=== PATIENT | male | born 1960 | race Caucasian/White ===

== ENCOUNTER 2024-03-11 | Outpatient (REF) | payer MEDICAID, SELFPAY | END 2024-03-11 00:01 | disposition home or self-care (01) | LOC: HO.HHCLNP | PROVIDERS: Visit Provider Emergency Medicine | DX: L03.115 Cellulitis of right lower limb (principal) | CPT/HCPCS: 87070; 87077; 87186; 87205 ==

== ENCOUNTER 2024-03-19 12:32 | Outpatient (REF) | payer MEDICAID, SELFPAY ==
[2024-03-19 13:44] LABS: Hematocrit 41.6 % (42.0-52.0); Hemoglobin 13.8 g/dl (14.0-18.0); Mean Corpuscular HGB Conc 33.2 g/dl (31.0-36.0); Mean Corpuscular Hemoglobin 28.2 pg (27.0-33.0); Mean Corpuscular Volume 85.1 fL (80.0-98.0); Mean Platelet Volume 10.4 fL (9.4-12.4); Platelet Count 189 X10*3/uL (160-400); Red Blood Count 4.89 X10*6/uL (4.60-5.80); Red Cell Distribution Width 13.3 % (11.0-16.0); White Blood Count 4.1 X10*3/uL (4.8-10.8)
[2024-03-19 14:21] LABS: Prostate Specific Antigen Scr < 0.10 ng/mL (<0.05-4.0)
[2024-03-19 14:30] LABS: Alanine Aminotransferase 23 U/L (0-40); Albumin Level 4.1 g/dL (3.5-5.0); Alkaline Phosphatase 83 U/L (39-117); Anion Gap 14 (12-20); Aspartate Amino Transferase 23 U/L (5-37); Bilirubin Direct 0.1 mg/dL (0.0-0.5); Bilirubin Total 0.4 mg/dL (0.0-1.0); Blood Urea Nitrogen 19 mg/dL (9-16); Calcium 9.2 mg/dL (8.4-10.2); Carbon Dioxide 26 mmol/L (22-29); Chloride 103 mmol/L (96-108); Cholesterol 177 mg/dL (<200); Estimated Glomerular Filt Rate > 60; Free T4 (Free Thyroxine) 0.83 ng/dL (0.71-1.85); Glucose Random 96 mg/dL (60-115); HDL Cholesterol 48 mg/dL (>40); LDL Cholesterol Calculated 108 mg/dL (<100); Potassium 4.2 mmol/L (3.3-5.1); Sodium 139 mmol/L (135-145); Thyroid Stimulating Hormone 2.02 uIU/mL (0.32-4.0); Total Protein 7.3 g/dL (6.5-8.0); Triglycerides 109 mg/dL (<150); Vitamin D 25-OH Total 26.7 ng/mL (>30)
[2024-03-19 17:23] LABS: Creatinine Urine 145.03 mg/dL; Microalbum/Creatinine Ratio Ur 4.1 ug/mg cr (<30)
[2024-03-19 18:01] LABS: CT PCR NOT DETECTED (Not Detect.); NG PCR NOT DETECTED (Not Detect.)
[2024-03-20 05:41] LABS: Estimated Average Glucose 114 mg/dL; HBS Num1 134.56 mIU/mL (0-7.99); HBsAGNum1 0.28 S/CO (0.00-0.99); HIV AB/AG Nonreactive (Nonreactive); HIV Num 1 0.05 S/CO (0.00-0.99); Hemoglobin A1C 130.7381 umol/L; Hemoglobin A1c % 5.6 % (<6.0); Hepatitis A Antibody IgG REACTIVE (Nonreactive); Hepatitis B Core Antibody Nonreactive (Nonreactive); Hepatitis B Surface Antigen Negative (Negative); Total Hemoglobin (HGBA1C) 3499.8549 umol/L; ~HepC Num1 0.13 S/CO (0.00-0.79); ~Hepatitis A Antibody IgG 12.41 S/CO (0.00-0.99); ~Hepatitis B Surface Antibody REACTIVE (Nonreactive); ~Hepatitis C Antibody Nonreactive (Nonreactive)
[2024-03-21 09:44] LABS: RPR Rapid Plasma Reagin NON-REACTIVE (NON-REACTIVE)
== END 2024-03-19 12:33 | disposition home or self-care (01) ==
LOC: HO.HHCL 12:32
PROVIDERS: Visit Provider Family Medicine
DX: Z00.00 Encounter for general adult medical examination without abnormal findings (principal); I10 Essential (primary) hypertension
CPT/HCPCS: 36415; 80048; 80061; 80076; 82043; 82306; 82570; 83036; 84153; 84439; 84443; 85027; 86592; 86704; 86706; 86708; 86803; 87340; 87389; 87491; 87591

== ENCOUNTER 2024-06-26 10:36 | Outpatient (AMB) | payer MEDICAID, SELFPAY ==
--- NOTE | 2024-06-26 10:40 | A.OFFVIS_ITS ---
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 Has been going on for about 2 years. Patient has neuropathy. Left leg is worse. Swelling on both. 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 Complaints include pain over varicosities, swelling of lower extremities, cramping, fatigue, and heaviness of the lower extremities. It has been affecting there daily activities including walking. 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 It is noted more so in left leg. Patient denies any previous venous surgery or injections. Patient denies any history of DVT/ PE. Patient denies any history of phlebitis. Trial of compression includes - [id number] They now present for vascular evaluation regarding their varicose veins. Review of Systems Const Reports as per HPI ENT Reports no additional complaints Card Denies chest pain, Denies chest pain at rest and Denies chest pain with activity Resp Denies chest congestion and Denies cough GI Reports no additional complaints Musc Details: pain over varicosities, aching of lower extremities, swelling, cramping, heaviness and tiredness, itching Denies abnormal gait Skin/Breast Reports pruritus and Denies wounds Neuro Reports no additional complaints and Denies abnormal gait Psych Denies no additional complaints Physical Exam Const General: cooperative, healthy appearing and comfortable Orientation/consciousness: oriented to person, oriented to place and oriented to time Neck Carotids: no bruits Chest Chest palpation & inspection: normal inspection of the chest and normal palpation of entire chest wall Resp Effort & Inspection: normal respiratory effort and able to speak in complete sentences Cardio Rate: regular rate Heart sounds: S1 normal heart sound present and S2 normal heart sound present Peripheral pulses: Peripheral pulses 2+ throughout GI Inspection: Yes normal to inspection Skin Other: +2 edema CEAP Classification C4 - skin color changes Ep - Etiology Primary As - superficial veins P - reflux General skin exam: dry skin Neuro General: oriented to person, oriented to place and oriented to time Extrem Right lower extremity: full ROM, normal capillary refill and edema Left lower extremity: full ROM, normal capillary refill and edema Psych Mental Status: mental status grossly normal Assessment & Plan Assessment & Plan (1) Varicose veins of left lower extremity with inflammation: Code(s): I83.12 - Varicose veins of left lower extremity with inflammation Category: Medical Plan: In short, the patient has evidence of venous insufficiency. I have discussed the pathophysiology with the patient. In addition I have provided informational material regarding venous disease to the patient. We have discussed conservative measures including compression, elevation, and exercise. I have also provided a handout regarding appropriate use of compression stockings and where to purchase good compression stockings as well. I have taken the liberty of ordering venous insufficiency testing with the patient. They will follow up with me after testing. The patient had an opportunity to ask questions regarding the treatment plan. All questions were answered. Imaging studies, laboratory studies and physical exam results were discussed and reviewed in detail. No major barriers to understanding were identified. The patient expressed understanding and agreement with the above treatment plan. The patient is aware they should contact our office by phone for worsening of the current condition or the appearance of new symptoms. Thank you for allowing me to participate in the vascular care of this patient. If you have any questions or concerns regarding the treatment for the above condition please do not hesitate to contact me. The office telephone contact is [phone]. This note is constructed using voice recognition software. While every effort has been made to ensure accuracy, maintenance engineer oil field errors may have been included. Thank you for allowing me to participate in the care of your patient. Yours sincerely, Leander Kapoor MD, FACS, R.P.V.I. Orders: Orders US venous duplex LE BI 1 Week I83.12 - Varicose veins of left lower extremity with inflammation Coding Level of Care Code New Pt Level 4 (97396) Diagnoses Varicose veins of left lower extremity with inflammation I83.12
== END 2024-06-26 10:54 | disposition home or self-care (01) ==
PROVIDERS: PCP Family Medicine; Visit Provider Surgery Vascular Surgery
DX: I83.12 Varicose veins of left lower extremity with inflammation (principal)
CPT/HCPCS: 99204

== ENCOUNTER → 2024-06-26 10:36 | Outpatient (BNVA) | payer MEDICAID, SELFPAY | PROVIDERS: PCP Family Medicine; Visit Provider Surgery Vascular Surgery | DX: I83.12 Varicose veins of left lower extremity with inflammation (principal) | CPT/HCPCS: 99202 ==

== ENCOUNTER → 2024-07-29 10:37 | Outpatient (BNV) | payer OTHER, SELFPAY | PROVIDERS: Visit Provider Radiology Diagnostic Radiology | DX: I87.2 Venous insufficiency (chronic) (peripheral) (principal) | CPT/HCPCS: 93970 ==

== ENCOUNTER 2024-08-12 11:00 | Outpatient (AMB) | payer MEDICAID, SELFPAY ==
--- NOTE | 2024-08-12 11:02 | A.OFFVIS_ITS ---
Intake Visit Reasons: follow up s/p US 07/29/24 Intake Note: Patient presents for follow up . States he has bilateral swelling , discoloration and cramping. Left leg is worse. Accompanied by: Officers Allergies acetaminophen [From TYLENOL] Allergy (Mild, Verified 08/12/24 11:03) RASH codeine Allergy (Unknown, Verified 08/12/24 11:03) Hives HPI HPI follow up s/p 07/29/24: Details: Complex 63-year-old gentleman who is currently incarcerated presents for follow- up regarding venous insufficiency. He reports he has swelling of bilateral lower extremities. He remains quite active and wears compression. He now presents for follow-up with venous insufficiency testing. Review of Systems Const All systems reviewed & are unremarkable except as noted in HPI and below Reports no additional complaints ENT Reports Normal hearing present Card Denies chest pain, Denies chest pain at rest, Denies chest pain with activity and Denies pedal edema Resp Denies cough GI Denies abdominal pain Musc Denies abnormal gait, Denies muscle cramps and Denies radiating pain into limb Skin/Breast Denies skin ulcer and Denies wounds Neuro Reports Normal hearing present and Denies abnormal gait Psych Reports no additional complaints Physical Exam Const General: cooperative, healthy appearing and comfortable Orientation/consciousness: oriented to person, oriented to place and oriented to time HEENT Head: Yes normal to inspection Neck Neck: Yes normal visual inspection Carotids: no bruits Chest Chest palpation & inspection: normal inspection of the chest Resp Effort & Inspection: normal respiratory effort and able to speak in complete sentences Auscultation: clear to auscultation bilaterally, no crackles, no rales, no rhonchi and no wheezes Cardio Rate: regular rate Rhythm: regular rhythm Heart sounds: S1 normal heart sound present and S2 normal heart sound present Bruits: no carotid bruits Peripheral pulses: Peripheral pulses 2+ throughout GI Inspection: Yes normal to inspection Skin Wounds: no wounds Hair: normal Neuro General: oriented to person, oriented to place and oriented to time Cranial nerves: Yes CN's II-XII intact bilaterally and Yes Normal hearing present Cognition (Neuro): normal cognition Motor exam (neuro): 5/5 motor strength present throughout Extrem Other: venous exam: +2 edema. No significant varicosities noted. General: No clubbing, No cyanosis and Yes edema Psych Appearance: grossly normal Mental Status: mental status grossly normal Speech and movement: Normal speech and movement present Results Reviewed Results Reviewed: Brief summary of venous insufficiency testing is as follows: right great saphenous vein: Focally positive at knee right small saphenous vein: negative right accessory vein: none present left great saphenous vein: Focally positive at knee left small saphenous vein: negative left accessory vein: none present Please note there is no evidence of any venous aneurysms or significant tortuosity Assessment & Plan Assessment & Plan (1) Varicose veins of left lower extremity with inflammation: Code(s): I83.12 - Varicose veins of left lower extremity with inflammation Category: Medical Plan: In short patient is negative for any significant venous insufficiency. At the sites that it is positive vein is of small caliber. We did discuss routine conservative measures including compression elevation and exercise. Once he is discharged from his current situation I am happy to see him back and we are able to discuss more aggressive option such as lymphedema pumps. He will follow up with us as an outpatient on an as-needed basis. Thank you for allowing us to assist in his care. If there are any questions or concerns please do not hesitate to contact us. Coding Level of Care Code Est Pt Level 4 (37464) Diagnoses Varicose veins of left lower extremity with inflammation I83.12
--- OUTSIDE RECORDS SUMMARY | 2024-08-12 12:11 | XMS_ITS | Encounter Summary ---
Author Organization [employer] Address [address] [place] [address] Care Team Providers Care Court Officer Name Role Phone AvelinaRoxane Primary Care Provider [phone] Reason for Visit * Reason Onset Date Comments Recall Letter 07/15/2024 Recall Letter se nt 07/15/24. Encounter Details Date Type Department Care Team ([facility] st Contact Info) Description 07/15/2024 Telephone [facility] MEDICINE [address] [place] [address] Shanelle Li MA Recall Letter (Recall Letter sent 07/15/24.) Social History Tobacco Use Types Packs/Day Years Used Date Smoking Tobacco: Never Smokeless Tobacco: Never Depression Answer Date Recorded Patient Health Questionnaire-9 Score 16 03/19/2024 Patient Health Questionnaire-9 Score 16 03/19/2024 Last PHQ-9: Questionnaire Data Not on file 0 03/19/2024 Housing Stability Answer Date Recorded What is your housing situation today? I have payal pradhan 03/19/[address] you li ve. Do you have problems with any of the following? None of the above 03/19/2024 Food Insecurity Answer Date Recorded Within the past 12 months, y ou worried that your food would run out before you got money to buy more: Sometimes True 2023 Within the past 12 months,th e food you bought just didn't last and you didn't have enough money to get more: Sometimes True 03/19/2024 Transportation Answer Date Recorded In the past 12 months, has l ack of transportation kept you from medical appts, meetings, work or from getting things needed for daily living? No 03/19/2024 Utilities Answer Date Recorded In the past 12 months, has t he electric, gas, oil or water company threatened to shut off services in your home? No 03/19/2024 Depression Answer Date Recorded Patient Health Questionnaire-2 Score 2 03/19/2024 Internet Access Answer Date Recorded Internet Access Q1 Yes 03/19/2024 Internet Access Q2 Not on file 03/19/2024 Sex and Gender Information Value Date Recorded Sex Assigned at Male 04/24/2022 10:35 AM EDT Legal Sex Male 10:35 AM EDT Gender Identity Male 04/24/2022 10:35 AM EDT Sexual Orientation Straight 04/24/2022 10 :35 AM EDT documented as of this encounter Miscellaneous Notes * Telephone Encounter - Shanelle Li MA - 07/15/2024 2:51 PM EST Left message to patient vm to call office schedule follow up appt. Recall Letter mailed 07/15/24. documented in this encounter Plan of Treatment Not on file documented as of this encounter Visit Diagnoses Not on filedocumented in this encounter Additional Health Concerns Assessment Noted Time PHQ-9 Depression Total Score: 16 024 1:28 PM EDT documented as of this encounter Care Teams Court Officer Relationship Specialty Start Date End Date Roxane Quan DO [address] [place] [address] PCP - General Family Medicine 12/13/20 documented as of this encounter
--- OUTSIDE RECORDS SUMMARY | 2024-08-12 12:11 | XMS_ITS | Encounter Summary ---
Author Organization [employer] Address [address] [place] [address] Care Team Providers Care Environmental Remediation Specialist Name Role Phone Roxane Quan DO Primary Care Provider + [phone] Reason for Visit * Reason Onset Date Comments Televisit 04/25/2024 Encounter Details Date Type Department Care Team ([facility] st Contact Info) Description 04/25/2024 Telephone [facility] MEDICINE [address] [place], [place] [phone] Roxane Quan DO [address] [place], [place] [phone] Televisit Social History Tobacco Use Types Packs/Day Years [...] encounter Miscellaneous Notes * Telephone Encounter - Alicia Parr - 04/25/2024 12:32 PM EDT Tc from pt stating he has not received call for today's televisit documented in this encounter Plan of Treatment Not on file documented as of this encounter Visit Diagnoses Not on filedocumented in this encounter Additional Health Concerns Assessment Noted Time PHQ-9 Depression Total Score: 16 024 1:28 PM EDT documented as of this encounter Care Teams Environmental Remediation Specialist Relationship Specialty Start Date End Date Roxane Quan DO [address] [place] [id number] PCP - General Family Medicine 12/13/20 documented as of this encounter
--- OUTSIDE RECORDS SUMMARY | 2024-08-12 12:11 | XMS_ITS | Encounter Summary ---
Author Organization [employer] Address [address] [place] [address] Care Team Providers Care Cmm Technician Name Role Phone Roxane Quan DO Primary Care Provider + [phone] Reason for Visit * Reason Comments Care Coordination Outreach Encounter Details Date Type Department Care Team (Latest Contact Info) Description 07/17/2024 Patient Outreach [facility] [address] [place], [place] [phone] Roxane Quan DO [address] [place] [address] Care Coordination (Outreach) Social History Tobacco Use Types Packs/Day Years [...] AM EDT documented as of this encounter Progress Notes * Lacey Gastelum - 07/17/2024 1:31 PM EST CHW Lacey Gastelum , placed outbound call to patient in regards to offer services. CHW introducing herself from [facility] CM Department with CHW's name, department and direct contact [phone] requesting call back. Will re-attempt to contact within 5 days. and address not confirmed. documented in this encounter Plan of Treatment Not on file documented as of this encounter Visit Diagnoses Not on filedocumented in this encounter Additional Health Concerns Assessment Noted Time PHQ-9 Depression Total Score: 16 024 1:28 PM EDT documented as of this encounter Care Teams Cmm Technician Relationship Specialty Start Date End Date Roxane Quan DO [address] [place] [id number] PCP - General Family Medicine 12/13/20 documented as of this encounter
--- OUTSIDE RECORDS SUMMARY | 2024-08-12 12:11 | XMS_ITS | Encounter Summary ---
Author Organization [facility] [facility] Address [address] [place] [address] Care Team Providers Care Ethylbenzene Cracking Supervisor Name Role Phone Roxane Quan DO Primary Care Provider [phone] Encounter Details Date Type Department Care Team (Latest Contact Info) Description 01/10/2019 Abstract [facility] CONVERSIONS Dental, Provider, DDS Social History Tobacco Use Types Packs/Day Years Used Date Smoking Tobacco: Never Assessed Sex and Gender Information Value Date Recorded Sex Assigned at Male 04/24/2022 10:35 AM EDT Legal Sex Male 10:35 AM EDT Gender Identity Male 04/24/2022 10:35 AM EDT Sexual Orientation Straight 04/24/2022 10 :35 AM EDT documented as of this encounter Plan of Treatment Not on file documented as of this encounter Visit Diagnoses Not on filedocumented in this encounter Care Teams Ethylbenzene Cracking Supervisor Relationship Specialty Start Date End Date Roxane Quan DO [address] [place] [id number] PCP - General Family Medicine 12/13/20 documented as of this encounter
--- OUTSIDE RECORDS SUMMARY | 2024-08-12 12:11 | XMS_ITS | Clinical Summary ---
Author Organization [employer] Address [address] [facility] 7t [place] [address] Care Team Providers Care Net Software Developer Name Role Phone Kiana Quanfer Primary Care Provider Allergies Active Allergy Reactions Criticality Noted Date Comments Acetaminophen Rash,Unknown Low 05/08/2016 Codeine Hives,Unknown 05/08/2016 Medications Sublocade 300 MG/1.5ML injection 300 mg. 03/07/20 24 Active Blood Pressure kit 1 each 2 times daily. 1 kit 03/11/20 24 025 Active buPROPion SR (Wellbutrin SR) 150 MG 12 hr tablet Take 1 tablet (150 mg) by mouth 2 times daily. 60 tablet 3 03/19/20 24 025 Active docusate sodium (Colace) 100 MG capsule Take 1 capsule (100 mg) by mouth 2 times daily. 180 capsule 3 03/19/20 24 025 Active furosemide (Lasix) 40 MG tablet Take 1 tablet (40 mg) by mouth Once per day. 90 tablet 1 03/19/20 24 025 Active tamsulosin (Flomax) 0.4 MG 24 hr capsule Take 1 capsule (0.4 mg) by mouth at bedtime. 90 capsule 1 03/19/20 24 025 Active polycarbophil (FiberCon) 625 MG tablet Take 1 tablet (625 mg) by mouth Once per day. 90 tablet 3 03/19/20 24 025 Active cholecalcifero l (Vitamin D-3) 50 MCG (2000 UT) capsule Take 1 capsule (50 mcg) by mouth Once per day. 90 capsule 3 03/21/20 24 025 Active lisinopril 5 MG tablet Take 1 tablet (5 mg) by mouth Once per day. 30 tablet 11 04/15/20 24 025 Active Semaglutide-We ight Management (Wegovy) 0.5 MG/0.5ML solution auto-injector Inject 0.5 mg under the skin 1 (one) time per week. 2 mL 3 04/25/20 24 Active amphetamine-de xtroamphetamin e (Adderall) 20 MG tablet TAKE 1 TABLET BY MOUTH TWICE A DAY 60 tablet 08/12/19 25 Active gabapentin (Neurontin) 600 MG tablet TAKE 2 TABLETS BY MOUTH TWICE A DAY 120 tablet 08/12/19 25 Active gabapentin (Neurontin) 600 MG tablet Take 2 tablets (1,200 mg) by mouth 2 times daily. 120 tablet 3 03/19/20 24 025 Discontinued(Re order (will not trigger notification to Pharmacy)) amphetamine-de xtroamphetamin e (Adderall) 20 MG tablet Take 1 tablet (20 mg) by mouth 2 times daily. 60 tablet 07/04/19 25 025 Discontinued(Re order (will not trigger notification to Pharmacy)) Active Problems Problem Noted Date Diagnosed Date History of COVID-19 03/19/2024 ADHD 03/19/2024 History of cocaine dependence 03/19/2024 History of alcohol use 03/19/2024 Benign prostatic hyperplasia 03/19/2024 Chronic pain of both knees 03/19/2024 Anxiety 03/11/2024 Chronic constipation 03/11/2024 Major depression, recurrent, chronic 03/11/2024 History of bilateral hip replacements 03/11/2024 Essential hypertension 03/11/2024 Neuropathy 03/11/2024 Opioid dependence 03/11/2024 Osteoarthritis 03/11/2024 BMI 40.0-44.9, adult 03/11/2024 Chronic venous insufficiency 03/11/2024 Cervical spinal stenosis 05/22/2016 Overview (03/11/2024): Last Assessment & Plan: 55yoM with neck pain and LUE radiculopathy secondary to cervical stenosis, POD#2 s/p C3-C7 posterior cervical laminectomy -q4h neuro checks -HV removed today, steri-strips placed over site -Pain control with PO oxycodone, IV dilaudid prn and valium scheduled -Bowel regimen while on narcotics -regular diet; SLIV -venodynes for DVT ppx. Ok to start SQ heparin tonight -Increase gabapentin to 800mg TID -PT/OT consult. Mobilize without restrictions -IS while awake -Dispo planning back to his facility when pain adequately controlled Last Assessment & Plan: Chronic pain managed with gabapentin History of deep venous thrombosis 07/22/2012 Overview (03/11/2024): Last Assessment & Plan: RUE VTE in 03/2012 iso bacteremia with MSSA and GAS s/p endovascular thrombolysis, and several months of coumadin (3-6 months was recommended, exact duration completed is unclear but anticoag visits through 07/2012 in chart). Etiology of VTE was unclear, possibly iso bacteremia/cellulitis, but hypercoag state was also considered at that time. Resolved Problems Problem Noted Date Diagnosed Date Resolved Date History of colonoscopy 03/11/202403/19 Cellulitis of left lower extremity 12/12/2023 03/19/2024 Overview (03/11/2024): Last Assessment & Plan: Left lower extremity cellulitis Likely secondary to chronic venous stasis disease, has had prior cellulitis in the past. Outpatient, patient completed several days of doxycycline and cephalexin was added without significant improvement. Bilateral lower extremity Dopplers negative for DVT on admission. Patient started on ceftriaxone on admission, this was changed to cefazolin based on [facility] antibiotic guidelines for treatment of non purulent cellulitis. Patient does have risk factor for MRSA (incarceration), however only with local infection and definite subjective and objective signs of improvement on current regimen (not covering for MRSA). - change cefazolin to cefadroxil, monitor response overnight - Blood cultures obtained on admission, will follow - Wound care consulted, and recommended compression garment for tj stasis and possible early tj leg ulcer. - continue home Lasix, no evidence of significant volume overload Encounters Date Type Department Care Team Description 08/12/2024 Refill [facility] [address] [place] [address] Roxane Quan DO 07/31/2024 Patient Outreach [facility] [address] [place] [address] Roxane Quan DO Care Coordination (Outreach) 07/22/2024 Patient Outreach [facility] [address] [place] [address] Roxane Quan DO Care Coordination (Outreach) 07/17/2024 Patient Outreach [facility] [address] [place] [address] Roxane Quan DO Care Coordination (Outreach) 07/15/2024 Telephone [facility] [address] [place] [id number] Shanelle Li [place] Recall Letter (Recall Letter sent 07/15/24.) 07/04/2024 Refill [facility] [address] [place] [address] Roxane Quan DO 05/29/2024 Telephone [facility] [address] [place] [address] Roxane Quan DO No Show 05/27/2024 Refill [facility] [address] [place] [address] Roxane Quan DO from Last 3 Months Immunizations Name Administration Dates Next Due Hep A / Hep B 04/15/2010,03/10/2010 Influenza injectable quadrivalent preservative f ree 03/23/2017 Moderna Covid-19 Vaccine 12+ 08/12/2020,07/15/19 21 Pneumococcal Polysaccharide PPSV23 01/17/2018 Family History Medical History Relation Name Comments Crohn's disease Brother Arthritis Father Heart disease Father Lung cancer Father Heart disease Father's Brother Arthritis Mother COPD Mother Heart disease Paternal Grandfather Breast cancer Sister Relation Name Status Comments Brother Father Father's Brother Mother Paternal Grandfather Sister Social History Tobacco Use Types Packs/Day Years Used Date Smoking Tobacco: Never Smokeless Tobacco: Never Tobacco Cessation:Counseling Given: Not Answered Depression Answer Date Recorded Patient Health Questionnaire-9 [...] Orientation Straight 04/24/2022 10 :35 AM EDT Last Filed Vital Signs Vital Sign Reading Time Taken Comments Blood Pressure 148/86 04/15/2024 10:13 AM EDT Pulse 60 04/15/2024 10:13 AM EDT Temperature 36.5 ??C (97.7 ??F) 04/15/2024 10:13 AM E DT Respiratory Rate 12 04/15/2024 10:13 AM EDT Oxygen Saturation 97% 03/31/2024 9:12 AM EDT Inhaled Oxygen Concentration - - Weight 132 kg (290 lb) 04/15/2024 10:13 AM EDT Height 177.8 cm (5' 10 ) 04/15/2024 10:13 AM EDT Body Mass Index 41.61 04/15/2024 10:13 AM EDT Plan of Treatment Health Maintenance Due Date Last Done Comments CT Colonography 1961 Colonoscopy 1961 Colorectal Cancer Screening 1961 FIT DNA/Cologuard 1961 FIT 1961 FOBT 1961 Sigmoidoscopy 1961 Alcohol/Substance Use Screening 1973 DTaP/Tdap/Td Vaccines (1 - Tdap) 1980 Hepatitis B Vaccines (3 of 3 - Hep B Twinrix 3-dose series) 09/13/2010 04/15/2010, 03/10/2010 Zoster Vaccines (1 of 2) 09/20/2011 Pneumococcal Vaccine: 50+ Years (2 of 2 - PCV) 01/17/2019 01/17/2018 RSV Patients and Patients Aged 60 years or older (1 - Risk 60-74 years 1-dose series) 2021 COVID-19 Vaccine (3 - 2023-2 5 season) 2024 08/12/2020, 07/15/2020 Influenza Vaccine (#1) 2024 03/23/2017 Depression Monitoring (PHQ-9) 09/16/2024, 03/19/2024 Depression Screening 03/19/2025 03/19/2024, 03/19/2024 SDOH Screening 03/19/2025 03/19/2024 Tobacco Screening 03/31/2025 03/31/2024 Lipid Panel 03/19/2029 03/19/2024, 02/21/2021, 01/24/2021 Hepatitis A Vaccines Aged Out 04/15/2010, 03/10/2010 No longer eligible based on patient's age to complete this topic HIV Screening Completed 03/19/2024, 02/21/2021 Hepatitis C Screening Completed 03/19/2024 , 02/21/2021 HIB Vaccines Aged Out No longer eligi ble based on patient's age to complete this topic HPV Vaccines Aged Out No longer eligi ble based on patient's age to complete this topic IPV Vaccines Aged Out No longer eligi ble based on patient's age to complete this topic Meningococcal Vaccine Aged Out No bree gilmar eligible based on patient's age to complete this topic RSV under 20 months Aged Out No longe r eligible based on patient's age to complete this topic Rotavirus Vaccines Aged Out No longer eligible based on patient's age to complete this topic Procedures Procedure Name Priority Date/Time Associated Diagnosis Comments HEPATITIS C AB W/REFL TO HCV RNA, QN, PCR Routine 03/19/2024 12:34 PM EDT Healthcare maintenance HIV 1/2 ANTIGEN/ANTIBODY, FOURTH GENERATION W/RFL Routine 03/19/2024 12:34 PM EDT Healthcare maintenance LIPID PANEL, STANDARD Routine 03/19/2024 12:34 PM EDT Essential hypertension from Last 3 Months or Most Recently Relevant to Health Maintenance Results * Hepatitis C Antibody with Reflex to HCV, RNA, Quantitative, Real-Time PCR (03/19/2024 12:34 PM EDT) Hepatitis C Antibody Nonreactive Nonreactive [facility] Comment:Antibodies to HCV no t detected; does not exclude early acuteHCV infection. Blood Venous blood specimen / Unknown 03/19/2024 12:34 PM EDT 03/19/2024 1:20 PM EDT Roxane Quan DO LAB BLOOD ORDERABLES Final R esult [facility] [address] [place] [phone] * HIV-1/2 Antigen and Antibodies, Fourth Generation, with Reflexes (03/19/2024 12:34 PM EDT) HIV AB/AG Nonreactive Nonreactive [facility] Comment:HIV-1 p24 Ag and/or HIV-1/HIV-2 Ab not detected.A test result that is nonreactive does not exclude thepossibility of exposure to or infection with HIV-1 and/orHIV-2. Nonreactive results in this assay for individualswith prior exposure to HIV-1 and/or HIV-2 may be due toantigen and antibody levels that are below the limit ofdetection of this assay.The Web Designed Ro[employer] HIV Ag/Ab Combo assay result andsupplemental assay results should be interpreted inconjunction with the patient's clinical presentation,history and other laboratory results. If the results areinconsistent with clinical evidence, additional testing issuggested to confirm the result. Blood Venous blood specimen / Unknown 03/19/2024 12:34 PM EDT 03/19/2024 1:20 PM EDT us Roxane Quan DO LAB BLOOD ORDERABLES Final R esult [facility] [address] [place] [address] [phone] * (ABNORMAL) Lipid Panel, Standard (03/19/2024 12:34 PM EDT) Triglycerides 109 <150 mg/dL [facility] Comment:Desirable Triglyceri de: less than 150 mg/dLBorderline High Triglyceride 150-199 mg/dLHigh Triglyceride: 200-499 mg/dLVery High Triglyceride: greater than or equal to 5OO mg/dL Cholesterol 177 <200 mg/dL [facility] Comment:Desirable Cholestero l: less than 200 mg/dLBorderline High Cholesterol: 200-239 mg/dLHigh Cholesterol: greater than 239 mg/dL LDL Cholesterol Calculated 108(H) <100 mg/dL [facility] Comment:Desirable LDL: less than 100 mg/dLNear Optimal/Above Optimal LDL: 110- 129 mg/dLBorderline High LDL: 130-159 mg/dLHigh LDL: 160-189 mg/dLVery High LDL: greater than or equal to 190 mg/dL HDL Cholesterol 48 >40 mg/dL [facility] Comment:Desirable HDL: great er than 40 mg/dL Note: This HDL assay may give artificially low results in patients with liver disease. Blood Venous blood specimen / Unknown 03/19/2024 12:34 PM EDT 03/19/2024 1:20 PM EDT Roxane Quan DO LAB BLOOD ORDERABLES Final R esult [facility] [address] [place] [phone] from Last 3 Months or Most Recently Relevant to Health Maintenance Insurance [address] [address] [address] C3 Care Teams Net Software Developer Relationship Specialty Start Date End Date Roxane Quan DO [address] [place] [id number] PCP - General Family Medicine 12/13/20
--- OUTSIDE RECORDS SUMMARY | 2024-08-12 12:11 | XMS_ITS | Encounter Summary ---
Author Organization [employer] Address [address] [facility] [address] [place] [address] Care Team Providers Care Press Bucker Name Role Phone Roxane Quan DO Primary Care Provider Encounter Details Date Type Department Care Team (Late st Contact Info) Description 03/11/2024 Abstract [facility] [address] [place] [address] Roxane Quan DO [address] [place], [place] [phone] Social History Tobacco Use Types Packs/Day Years Used Date Smoking Tobacco: Never Smokeless Tobacco: Never Sex and Gender Information Value Date Recorded Sex Assigned at Male 04/24/2022 10:35 AM EDT Legal Sex Male 10:35 AM EDT Gender Identity Male 04/24/2022 10:35 AM EDT Sexual Orientation Straight 04/24/2022 10 :35 AM EDT documented as of this encounter Plan of Treatment Not on file documented as of this encounter Visit Diagnoses Not on filedocumented in this encounter Care Teams Press Bucker Relationship Specialty Start Date End Date Roxane Quan DO [address] [place], [place] [phone] PCP - General Family Medicine 12/13/20 documented as of this encounter
--- OUTSIDE RECORDS SUMMARY | 2024-08-12 12:12 | XMS_ITS | Encounter Summary ---
Author Organization [employer] Address [address] [facility] [address]t [place] [address] Care Team Providers Care Trolley Wire Installer Name Role Phone Roxane Quan DO Primary Care Provider + [phone] Reason for Visit * Reason Onset Date Comments Med Refill 08/12/2024 Encounter Details Date Type Department Care Team (Late st Contact Info) Description 08/12/2024 Refill [facility] [address] [place] [address] Roxane Quan DO [address] [place] [address] Social History Tobacco Use Types Packs/Day Years [...] encounter Miscellaneous Notes * Telephone Encounter - Roxane Lorenzo LPN - 08/12/2024 11:02 AM EST PCP VAC. SUPERVISOR TELEVISION CHASSIS REPAIR checked on 08/12/24. Last seen 04/25/24. documented in this encounter Plan of Treatment Not on file documented as of this encounter Visit Diagnoses Not on filedocumented in this encounter Additional Health Concerns Assessment Noted Time PHQ-9 Depression Total Score: 16 024 1:28 PM EDT documented as of this encounter Care Teams Trolley Wire Installer Relationship Specialty Start Date End Date Roxane Quna DO [address] [place] [phone] PCP - General Family Medicine 12/13/20 documented as of this encounter
--- OUTSIDE RECORDS SUMMARY | 2024-08-12 12:12 | XMS_ITS | Encounter Summary ---
Author Organization [employer] Address [address] [facility] [address] [place] [address] Care Team Providers Care Sail Finisher Hand Name Role Phone Roxane Quan DO Primary Care Provider + [phone] Reason for Visit * Reason Comments Care Coordination Outreach Encounter Details Date Type Department Care Team (Latest Contact Info) Description 07/31/2024 Patient Outreach [facility] [address] [place], [place] [phone] Roxane Quan DO [address] [place] [address] Care Coordination (Outreach) Social History Tobacco Use [...] encounter Progress Notes * Lacey Gastelum - 07/31/2024 2:40 PM EST CHW Lacey Gastelum , placed outbound call to patient in regards to offer services. CHW introducing herself from [facility] CM Department with CHW's name, department and direct contact [phone] requesting call back. Will re-attempt to contact within 5 days. and address not confirmed. documented in this encounter Plan of Treatment Not on file documented as of this encounter Visit Diagnoses Not on filedocumented in this encounter Additional Health Concerns Assessment Noted Time PHQ-9 Depression Total Score: 16 024 1:28 PM EDT documented as of this encounter Care Teams Sail Finisher Hand Relationship Specialty Start Date End Date Roxane Quan DO [address] [place] [phone] PCP - General Family Medicine 12/13/20 documented as of this encounter
--- OUTSIDE RECORDS SUMMARY | 2024-08-12 12:12 | XMS_ITS | Encounter Summary ---
Author Organization [employer] Address [address] [facility] [address] [place] [address] Care Team Providers Care Cancer Registrar Name Role Phone Roxane Quan DO Primary Care Provider + [phone] Reason for Visit * Reason Comments Care Coordination Outreach Encounter Details Date Type Department Care Team (Latest Contact Info) Description 07/22/2024 Patient Outreach [facility] [address] [place], [place] [phone] Roxane Quan DO [address] [place] [address] Care Coordination (Outreach) Social History Tobacco Use [...] encounter Progress Notes * Lacey Gastelum - 07/22/2024 11:40 AM EST CHW Lacey Gastelum , placed outbound call to patient in regards to offer services. CHW introducing herself from [facility] CM Department with CHW's name, department and direct contact [phone] requesting call back. Will re-attempt to contact within 5 days. and address not confirmed. documented in this encounter Plan of Treatment Not on file documented as of this encounter Visit Diagnoses Not on filedocumented in this encounter Additional Health Concerns Assessment Noted Time PHQ-9 Depression Total Score: 16 024 1:28 PM EDT documented as of this encounter Care Teams Cancer Registrar Relationship Specialty Start Date End Date Roxane Quan DO [address] [place] [phone] PCP - General Family Medicine 12/13/20 documented as of this encounter
== END 2024-08-12 11:23 | disposition home or self-care (01) ==
PROVIDERS: Visit Provider Surgery Vascular Surgery
DX: I83.12 Varicose veins of left lower extremity with inflammation (principal)
CPT/HCPCS: 99214